=== PATIENT | female | born 1945 | race Caucasian/White ===

== ENCOUNTER 2016-11-01 12:09 | Emergency (ER) | payer MEDICARE, BC ==
[~2016-11-01] VITALS: Ht 160 cm; Wt 72.0 kg
[~2016-11-01 12:09] MED LIST: CYCL-36; DIAZ10; ENOX60P; LORC10TA; STOO100C; TRIA37.512; VICOTAB4; VYTO10TA29
[2016-11-01 12:22] VITALS: BP 138/68; PULSE 52; RESP 16; TEMP 98.3; O2SAT 98
--- NOTE | 2016-11-01 12:42 | PD ---
HPI Chief Complaint: Cardiac Complaint Time Seen by Provider: 12:29 Travel History International Travel<30 days: No Contact w/Intl Traveler<30days: No Traveled to known affect area: No History of Present Illness HPI The patient was seen and examined in the presence of the nurse. This patient feels fine and has no symptoms. She went to a health screening fair and they did an EKG and noticed that her heart rate was in the 40s and told her to go to the emergency room. She has no presyncopal symptoms or chest pain or palpitations. She's been on atenolol 50 mg daily for a long time. Symptoms severity is negligible PFSH Past Medical History Blood Disorders: No Cancer: No Cardiovascular Problems: No Chemotherapy: No Diminished Hearing: No Endocrine: No Genitourinary: No Hypertension: Yes Immune Disorder: No Neurologic: No Psychiatric: No Reproductive: No Respiratory: No Radiation Therapy: No Ulcer: Yes ?: Not Menopausal: Yes Past Surgical History Abdominal Surgery: Yes (PART OF HER STOMACH REMOVED, ULCERS.) Gynecologic Surgery: Yes (HYSTERECTOMY ) Pacemaker: No Family History Family Hypercholesterolemia: Yes Social History Alcohol Use: No Tobacco Use: No Substance Use: No Allergies-Medications (Allergen,Severity, Reaction): Coded Allergies: Penicillin (Verified Allergy, Severe, RASH, 11/01/16) Ambien (Verified Adverse Reaction, Severe, Psychosis, 11/01/16) Reported Meds & Prescriptions Reported Meds & Active Scripts Active Reported Vitamin D3 (Cholecalciferol) 2,000 Unit Chew 2,000 Units CHEW DAILY Levothyroxine (Levothyroxine Sodium) 25 Mcg Tab 25 Mcg PO DAILY Potassium 75 Mg Tab Triamterene-Hydrochlorothiazide 37.5-25 Mg Tab 1 Tab PO DAILY Vytorin (Ezetimibe-Simvastatin) 10-40 Mg Tab 1 Tab PO HS Atenolol 50 Mg Tab 50 Mg PO DAILY Review of Systems General / Constitutional: No: Fever HENT: No: Headaches Cardiovascular: No: Chest Pain or Discomfort Physical Exam Narrative CARDIOVASCULAR: Regular rate and rhythm without murmur. Extremities showed no edema or varicosities. Heart rate of 50 and regular GASTROINTESTINAL: Abdomen soft, non-tender, nondistended. Positive bowel sounds. No hepato-splenomegaly, or palpable masses. No guarding. RESPIRATORY: Respiratory effort unlabored, no retractions or use of accessory muscles. Breath sounds are clear and symmetric. Data Data Last Documented VS Vital Signs Date Time Temp Pulse Resp B/P Pulse Ox O2 Delivery O2 Flow Rate FiO2 11/01/16 12:39 40 11/01/16 12:22 98.3 16 138/68 98 Orders Electrocardiogram (11/01/16 ) Med Surg Rn / Telemetry [email or web address] (11/01/16 12:37) MDM Medical Decision Making Medical Screen Exam Complete: Yes Emergency Medical Condition: Yes Medical Record Reviewed: Yes Differential Diagnosis Medication side effect, symptomatic bradycardia, cardiac arrhythmia Narrative Course I have reviewed the patient's electronic medical record. Patient is asymptomatic with a heart rate of 50 and a blood pressure 140 systolic Patient should discuss with her family physician. Given her lack of symptoms and normal blood pressure I don't feel she needs an urgent change in her regimen but she should keep an eye and her pulse and blood pressure and discuss with her physician whether they want to change her medications. I reviewed an EKG here which shows sinus rhythm at 44 without ectopy Extended cardiac monitoring reveals sinus bradycardia without ectopy I observed the patient for 90 minutes and she is asymptomatic the whole time Recommend she hold her atenolol tomorrow morning and call her physician for follow-up She'll track her pulse and blood pressure daily Diagnosis Primary Impression: Bradycardia Additional Impression: Medication side effect Qualified Code: T88.7XXA - Medication side effect, initial encounter Additional Instructions: The patient was advised to follow up with their physician and return if they worsen. Hold atenolol Check and recorded pulse and blood pressure daily Med/Other Pt SpecificInfo: Other Disposition: 01 DISCHARGE HOME Condition: Stable Mak Gibson MD November 01, 2016 12:42
[2016-11-01] MEDS ORDERED: ATEN50TA PO (12:45)
[2016-11-01] MEDS ORDERED: CHOL1CHW5 CHEW (12:45)
[2016-11-01] MEDS ORDERED: LEVO25TA4 PO (12:45)
[2016-11-01] MEDS ORDERED: POTA75TA (12:45)
[2016-11-01] MEDS ORDERED: VYTO10TA9 PO (12:45)
[2016-11-01] MEDS ORDERED: TRIA37.5 PO (12:45)
[2016-11-01 13:58] VITALS: BP 132/87
--- NOTE | 2016-11-01 16:31 | EKG ---
Date Performed: 11/01/2016 Time Performed: 12:41:50 PTAGE: 71 years EKG: Sinus bradycardia Extensive T wave changes are nonspecific Borderline ECG PREVIOUS TRACING : 03/15/2007 16.36 Compared to previous tracing, heart rate has decreased, ant erolateral T wave inversion is now less evident. DOCTOR: Mohit Rankin Interpretating Date/Time 11/01/2016 16:29:32
== END 2016-11-01 14:05 | disposition home or self-care (01) ==
LOC: PHED 12:09
DX: R00.1 Bradycardia, unspecified (principal); T44.7X5A Adverse effect of beta-adrenoreceptor antagonists, initial encounter
CPT/HCPCS: 93005